=== PATIENT | male | born 1970 | race Caucasian/White ===

== ENCOUNTER 2017-12-23 14:50 | Emergency (ER) | payer OTHER ==
[~2017-12-23] VITALS: Ht 190.5 cm; Wt 145.0 kg
[~2017-12-23 14:50] MED LIST: AUGM875 PO; Z.0.NO CURRENT MEDS
[2017-12-23 14:59] VITALS: BP 189/96; PULSE 97; RESP 16; TEMP 99; O2SAT 96
[2017-12-23] MEDS ORDERED: TETANUS/DIPHTHERIA TOXOID ADULT 0.5 ML VIAL IM ONE (15:30)
--- NOTE | 2017-12-23 15:56 | PD ---
HPI Chief Complaint: Laceration/Skin Injury Time Seen by Provider: 15:18 Travel History International Travel<30 days: No Contact w/Intl Traveler<30days: No Traveled to known affect area: No History of Present Illness HPI 47-year-old female presents to the emergency room for evaluation of laceration to his left leg that occurred just prior to arrival. Patient was being pulled by his dog while at work and the dog accidentally pulled him into a metal pipe that was sticking out. He reports immediate, minimal pain. Patient applied a dressing and elevated the leg prior to coming to the emergency room. Unknown last tetanus. Denies history of diabetes. [facility] Past Medical History Medical History: Denies Significant Hx Cardiovascular Problems: Yes (htn not on meds) Diminished Hearing: No Integumentary: Yes Immunizations Current: Yes Tetanus Vaccination: > 5 Years Influenza Vaccination: No Past Surgical History Cholecystectomy: Yes Social History Alcohol Use: Yes (OCCASSIONAL) Tobacco Use: No Substance Use: No Allergies-Medications (Allergen,Severity, Reaction): Coded Allergies: No Known Allergies (Verified Allergy, Mild, 12/23/17) Reported Meds & Prescriptions Reported Meds & Active Scripts Active No Active Prescriptions or Reported Medications Review of Systems Except as stated in HPI: all other systems reviewed are Neg Physical Exam Narrative GENERAL: Well-nourished, well-developed male in no acute distress. Afebrile. Ambulatory. SKIN: Focused skin assessment warm/dry. Well approximated 3 cm vertical laceration to the left lower anterior tovar. Nonbleeding. HEAD: Normocephalic. EYES: No scleral icterus. No injection or drainage. NECK: Supple, trachea midline. No JVD or lymphadenopathy. CARDIOVASCULAR: Regular rate and rhythm without murmurs, gallops, or rubs. RESPIRATORY: Breath sounds equal bilaterally. No accessory muscle use. MUSCULOSKELETAL: No cyanosis, or edema. Data Data Last Documented VS Vital Signs Date Time Temp Pulse Resp B/P (MAP) Pulse Ox O2 Delivery O2 Flow Rate FiO2 12/23/17 14:59 99.0 97 16 189/96 (127) 96 Orders Orders Tetanus/Diphtheria Tox Adult (Tetanus/Di (12/23/17 15:30) Ed Discharge Order (12/23/17 15:56) MDM Medical Decision Making Medical Screen Exam Complete: Yes Emergency Medical Condition: Yes Medical Record Reviewed: Yes Differential Diagnosis Laceration, contusion, abrasion Narrative Course 47-year-old male presents to the emergency room for evaluation of a laceration to his left anterior tovar that occurred just prior to arrival. Patient cut himself on a piece of metal that was sticking out accidentally. Physical exam reveals a 3 cm well approximated superficial laceration to the left anterior tovar. Nonbleeding. Mildly tender. Laceration was repaired, see procedure note for details. Patient discharged with wound care instructions and told to follow-up with primary care physician or return for worsening symptoms. He understands and agrees to plan. Procedures Procedure Narrative LACERATION LOCATION: Left anterior tovar LENGTH: 3 cm NUMBER OF STITCHES/ASHA: 5 simple interrupted REPAIR: The area of the laceration was prepped with Betadine and sterilely draped. The laceration was infiltrated with 1% lidocaine with epinephrine. The wound was copiously irrigated and explored without evidence of foreign body , tendon injury or neurovascular injury. The wound was closed using 4-0 Prolene. This was a single layer repair. A sterile dressing was applied. The patient was advised to keep the dressing clean and dry. Patient tolerated the procedure well. Diagnosis Primary Impression: Laceration of left leg Qualified Codes: S81.812A - Laceration without foreign body, left lower leg, initial encounter Referrals: Primary Care Physician Additional Instructions: Rest and drink fluids. Keep wound clean and dry. Apply triple antibiotic ointment daily. Return in 10-14 days to have sutures removed. Follow-up with a primary care physician. Return to the emergency room for worsening symptoms. Scripts No Active Prescriptions or Reported Meds Disposition: 01 DISCHARGE HOME Condition: Stable Debra Salmeron Dec 23, 2017 15:56
== END 2017-12-23 16:02 | disposition home or self-care (01) ==
LOC: PHEFT 14:50
DX: S81.812A Laceration without foreign body, left lower leg, initial encounter (principal); W22.8XXA Striking against or struck by other objects, initial encounter; Y93.K1 Activity, walking an animal; Y99.0 Civilian activity done for income or pay; I10 Essential (primary) hypertension; Z23 Encounter for immunization
CPT/HCPCS: 12002; 90471; 90714